=== PATIENT | male | born 1960 ===

== ENCOUNTER 2017-02-17 15:18 | Emergency (ER) | payer MEDICAID ==
[2017-02-17 15:26] VITALS: RESP 18
[2017-02-17 15:43] VITALS: O2SAT 99
--- NOTE | 2017-02-17 16:31 | ED PDOC ---
HPI: SOB/CHF/COPD Time Seen by Provider: 02/17/17 15:30 Chief Complaint (Nursing): Headache Chief Complaint (Provider): shortness of breath and hypertension History Per: Patient Onset/Duration Of Symptoms: Days (1) Current Symptoms Are (Timing): Still Present Severity: Mild Associated Symptoms: Other (nonproductive cough). denies: Fever, Chills, Sweating, Chest Pain, Bloody Cough, Productive Cough, Heart Racing, Leg/Calf Pain, Ankle/Leg Swelling, Dizziness, Light-headedness Additional Complaint(s): Had first visit to clinic today to start evaluation for umbilical hernia repair , found to have very elevated BP. Denies having any symptoms prior to today. Admits that he has had hypertension and high cholesterol, but has not had any meds for about 5 years due to insurance issues. PMD [facility] [place] Past Medical History Reviewed: Historical Data, Nursing Documentation, Vital Signs Vital Signs: Last Vital Signs Temp 98 F 02/17/17 16:35 Pulse 94 H 02/17/17 16:35 Resp 18 02/17/17 16:35 BP 166/97 H 02/17/17 16:52 Pulse Ox 99 02/17/17 22:06 - Medical History PMH: HTN, Hypercholesterolemia - Surgical History Other surgeries: Circumcision - Family History Family History: States: Diabetes, Hypertension - Social History Current smoker - smoking cessation education provided: No Alcohol: None Drugs: Denies - Home Medications Home Medications: Ambulatory Orders Medication Instructions Recorded hydroCHLOROthiazide [Hydrodiuril] 25 mg PO DAILY #30 tab 02/17/17 - Allergies Allergies/Adverse Reactions: Allergies Allergy/AdvReac Type Severity Reaction Status Date / Time No Known Allergies Allergy Verified 02/17/17 15:22 Review of Systems ROS Statement: Except As Marked, All Systems Reviewed And Found Negative (and as per HPI) Constitutional: Negative for: Fever, Chills, Weakness, Malaise Cardiovascular: Negative for: Chest Pain, Light Headedness Respiratory: Positive for: Cough, Shortness of Breath. Negative for: SOB with Exertion Physical Exam - Reviewed Nursing Documentation Reviewed: Yes Vital Signs Reviewed: Yes - Physical Exam Appears: Positive for: Non-toxic, No Acute Distress Head Exam: Positive for: ATRAUMATIC, NORMOCEPHALIC Skin: Positive for: Warm, Dry Eye Exam: Positive for: EOMI, PERRL ENT: Negative for: Pharyngeal Erythema, Tonsillar Exudate Neck: Positive for: Painless ROM, Supple Cardiovascular/Chest: Positive for: Regular Rate, Rhythm, Chest Non Tender. Negative for: Murmur Respiratory: Positive for: Normal Breath Sounds. Negative for: Rales, Respiratory Distress Gastrointestinal/Abdominal: Positive for: Soft, Hernia (soft reducible umbilical hernia). Negative for: Tenderness, Mass, Distended, Guarding, Rebound Back: Positive for: Normal Inspection. Negative for: Decreased ROM Extremity: Positive for: Normal ROM. Negative for: Deformity Lymphatic: Negative for: Adenopathy Neurologic/Psych: Positive for: Alert. Negative for: Motor/Sensory Deficits - Laboratory Results Result Diagrams: 02/17/17 16:50 02/17/17 17:10 - ECG ECG: Positive for: Interpreted By Me ECG Rhythm: Positive for: Sinus Rhythm (w PVC), Nonspecific Changes (LVH) O2 Sat by Pulse Oximetry: 99 Pulse Ox Interpretation: Normal - Progress ED Course And Treament: Accession No. : [id number] Patient Name / ID : DELL SHERMAN / [id number] Exam Date : 02/17/2017 17:46:59 ( Approved ) Study Comment : Sex / Age : M / 56Y Creator : Duc Holman MD Dictator : Duc Holman MD Mate Fishing Vessel : Diesel Pile Hammer Operator : Duc Holman MD Approver2 : Report Date : 02/17/2017 18:21:42 My Comment : PROCEDURE: CT Chest with contrast (Pulmonary Angiogram) HISTORY: Shortness of breath, tachycardia. Elevated D-dimer. COMPARISON: February 17, 2017. Two-view chest. TECHNIQUE: Axial computed tomography images were obtained of the chest in the pulmonary arterial phase of enhancement. Coronal and sagittal reformatted images were created and reviewed. Maximum intensity projection (MIP) reconstructed images in the following planes: Intravenous contrast dose: 90 mL Visipaque 320. Mean Hounsfield unit values in the main pulmonary artery: 230.17 Radiation dose: Total exam DLP = 443.83 mGy-cm. This CT exam was performed using one or more of the following dose reduction techniques: Automated exposure control, adjustment of the mA and/or kV according to patient size, and/or use of iterative reconstruction technique. FINDINGS: PULMONARY ARTERIES: Unremarkable. No pulmonary embolism. AORTA: No acute findings. No thoracic aortic aneurysm. LUNGS: Unremarkable. No nodule, mass or pulmonary consolidation. PLEURAL SPACES: Unremarkable. No effusion or pneuomothorax. HEART: Unremarkable. No cardiomegaly. No significant pericardial effusion. LYMPH NODES: No lymphadenopathy. BONES, CHEST WALL: Unremarkable. No fracture or destructive lesion OTHER FINDINGS: Unremarkable. IMPRESSION: Unremarkable CT pulmonary angiogram. No pulmonary embolus.No significant or acute findings to account for/ related to the clinical presentation. Pt's BP decreased by 20%, with no intervention. No signs of emergent end-organ effects of hypertension. Pt stable for dc with outpatient follow up. Disposition - Clinical Impression Clinical Impression: Hypertension, Umbilical hernia Counseled Patient/Family Regarding: Studies Performed, Diagnosis, Need For Followup, Rx Given - Disposition Referrals: [facility] [Outside] Afua Sahni MD [Staff Provider] - [facility] [place] [Outside] () Disposition: Routine/Home Disposition Time: 19:13 Condition: IMPROVED Additional Instructions: CALL TOMORROW TO SCHEDULE APPOINTMENTS: FOLLOW UP WITH CLINIC IN 2 WEEKS FOR REEVALUATION OF YOUR BLOOD PRESSURE FOLLOW UP WITH SURGERY DR SAHNI FOR FURTHER EVALUATION FOR UMBILICAL HERNIA. Prescriptions: hydroCHLOROthiazide [Hydrodiuril] 25 mg PO DAILY #30 tab Instructions: Umbilical Hernia (ED), DASH Eating Plan (ED), Hypertension (ED) Forms: [employer] ([place])
[2017-02-17 16:42] VITALS: PULSE 94; TEMP 98
[2017-02-17 16:53] VITALS: BP 166/97
[2017-02-17 16:59] LABS: BASO # 0.1 K/uL (0.0-0.2); BASO % 0.7 % (0.0-2.0); EOS # 0.1 K/uL (0.0-0.7); EOS % 0.6 % (0.0-4.0); HEMATOCRIT 44.8 % (35.0-51.0); LYMPH # 2.1 K/uL (1.0-4.3); LYMPH % 20.1 % (20.0-40.0); MEAN CELL VOLUME 83.6 fl (80.0-94.0); MEAN CORPUSCULAR HEMOGLOBIN 28.9 pg (27.0-31.0); MEAN CORPUSCULAR HGB CONC 34.6 g/dL (33.0-37.0); MEAN PLATELET VOLUME 7.5 fl (7.2-11.7); MONO # 0.9 K/uL (0.0-0.8); MONO % 8.3 % (0.0-10.0); NEUT # 7.2 K/uL (1.8-7.0); NEUT % 70.3 % (50.0-75.0); NRBC % 0.1 % (0.0-0.0); RED CELL DISTRIBUTION WIDTH 14.7 % (11.5-14.5); WHITE BLOOD COUNT 10.2 K/uL (4.8-10.8)
[2017-02-17 17:03] LABS: URINE BILIRUBIN NEGATIVE (NEGATIVE); URINE BLOOD MODERATE (NEGATIVE); URINE COLOR YELLOW (YELLOW); URINE GLUCOSE (UA) NEG (Normal); URINE KETONE NEGATIVE (NEGATIVE); URINE LEUKOCYTE ESTERASE NEG Leu/uL (Negative); URINE PROTEIN 30 mg/dL (NEGATIVE); URINE UROBILINOGEN 0.2-1.0 mg/dL (0.2-1.0); WBC URINE 1 /hpf (0-5)
[2017-02-17 17:16] LABS: RBC URINE 6 /hpf (0-3)
--- NOTE | 2017-02-17 17:21 | RAD ---
HISTORY: htn COMPARISON: No prior. TECHNIQUE: Chest PA and lateral FINDINGS: LUNGS: No active pulmonary disease. PLEURA: No significant pleural effusion identified. No pneumothorax apparent. CARDIOVASCULAR: No radiographic findings to suggest acute or significant cardiovascular disease. OSSEOUS STRUCTURES: No significant abnormalities. VISUALIZED UPPER ABDOMEN: Normal. OTHER FINDINGS: None. IMPRESSION: No active disease.
[2017-02-17 17:31] LABS: ALB/GLOB RATIO 1.2 (1.0-2.1); ALKALINE PHOSPHATASE 92 U/L (38-126); ALT/SGPT 75 U/L (21-72); AST/SGOT 44 U/L (17-59); BILIRUBIN,TOTAL 0.5 mg/dl (0.2-1.3); BLOOD UREA NITROGEN 14 mg/dl (9-20); CALCIUM 9.3 mg/dL (8.4-10.2); CARBON DIOXIDE 30 mmol/L (22-30); CHLORIDE 101 mmol/L (98-107); GFR AFRICAN-AMERICAN > 60; GLUCOSE,RANDOM 97 mg/dL (75-110); MAGNESIUM 1.7 MG/DL (1.6-2.3); PHOSPHOROUS 3.7 mg/dl (2.5-4.5); POTASSIUM 3.3 MMOL/L (3.6-5.0); SODIUM 142 mmol/l (132-148); TOTAL PROTEIN 8.5 G/DL (6.3-8.2)
[2017-02-17] MEDS ORDERED: Iodixanol 320 MG/ML 100 ML BOTTLE IV ONE (17:34)
[2017-02-17] MEDS ORDERED: Sodium Chloride 0.9% 50 ML IV ONE (17:34)
[2017-02-17 18:01] LABS: THYROID STIMULATING HORMONE 2.45 mIU/ML (0.46-4.68)
--- NOTE | 2017-02-17 18:23 | CT ---
PROCEDURE: CT Chest with contrast (Pulmonary Angiogram) HISTORY: Shortness of breath, tachycardia. Elevated D-dimer. COMPARISON: February 17, 2017. Two-view chest. TECHNIQUE: Axial computed tomography images were obtained of the chest in the pulmonary arterial phase of enhancement. Coronal and sagittal reformatted images were created and reviewed. Maximum intensity projection (MIP) reconstructed images in the following planes: Intravenous contrast dose: 90 mL Visipaque 320. Mean Hounsfield unit values in the main pulmonary artery: 230.17 Radiation dose: Total exam DLP = 443.83 mGy-cm. This CT exam was performed using one or more of the following dose reduction techniques: Automated exposure control, adjustment of the mA and/or kV according to patient size, and/or use of iterative reconstruction technique. FINDINGS: PULMONARY ARTERIES: Unremarkable. No pulmonary embolism. AORTA: No acute findings. No thoracic aortic aneurysm. LUNGS: Unremarkable. No nodule, mass or pulmonary consolidation. PLEURAL SPACES: Unremarkable. No effusion or pneuomothorax. HEART: Unremarkable. No cardiomegaly. No significant pericardial effusion. LYMPH NODES: No lymphadenopathy. BONES, CHEST WALL: Unremarkable. No fracture or destructive lesion OTHER FINDINGS: Unremarkable. IMPRESSION: Unremarkable CT pulmonary angiogram. No pulmonary embolus.No significant or acute findings to account for/ related to the clinical presentation.
--- NOTE | 2017-02-18 12:57 | CARD ---
APPROVED REPORT EKG Measurement Heart [id number] <Conclusion> Sinus rhythm with premature supraventricular complexes Voltage criteria for left ventricular hypertrophy Nonspecific ST and T wave abnormality Abnormal ECG
== END 2017-02-17 19:33 | disposition home or self-care (01) ==
LOC: H.ER 15:18
DX: I10 Essential (primary) hypertension (principal); K42.9 Umbilical hernia without obstruction or gangrene; E78.00 Pure hypercholesterolemia, unspecified; I49.1 Atrial premature depolarization; J44.9 Chronic obstructive pulmonary disease, unspecified
CPT/HCPCS: 71020; 71275; 80053; 80324; 80345; 80346; 80349; 80353; 80358; 80361; 81003; 83735; 83880; 83992; 84100; 84443; 84484; 85025; 85378; 93005; 99285; Q9967